=== PATIENT | female | born 1980 | race Caucasian/White ===

== ENCOUNTER 2018-12-22 05:30 | Day surgery (SDC) | payer BC ==
[2018-12-17 17:17] LABS: BASOPHILS % (AUTO) 0.4 % (0-1); EOSINOPHILS # (AUTO) 0.2 X10'3 (0-0.9); EOSINOPHILS % (AUTO) 1.5 % (0-6); LYMPHOCYTES # (AUTO) 2.9 X10'3 (1.1-4.8); LYMPHOCYTES % (AUTO) 26.5 % (21-51); MEAN CORPUSCULAR HEMOGLOBIN 28.3 PG (27.0-31.0); MEAN CORPUSCULAR HGB CONC 32.8 g/dL (33.0-36.5); MEAN CORPUSCULAR VOLUME 86.4 FL (78-98); MEAN PLATELET VOLUME 7.5 FL (7.4-10.4); MONOCYTES # (AUTO) 0.6 X10'3 (0-0.9); MONOCYTES % (AUTO) 5.1 % (2-12); NEUTROPHILS # (AUTO) 7.3 X10'3 (1.8-7.7); NEUTROPHILS % (AUTO) 66.5 % (42-75); PRE OP HEMATOCRIT 41.9 % (35.0-45.0); PRE OP HEMOGLOBIN 13.7 g/dL (12.0-16.0); PRE OP PLATELET COUNT 348 X10'3 (140-440); RED BLOOD COUNT 4.85 X10'6 (4.20-5.60)
[2018-12-17 17:25] LABS: ALBUMIN 3.7 G/DL (3.4-5.0); ALBUMIN/GLOBULIN RATIO 1.1 (1.1-1.5); ALKALINE PHOSPHATASE 88 IU/L (46-116); BLOOD UREA NITROGEN 16 MG/DL (7-18); BUN/CREATININE RATIO 19.5 (6.6-38.0); CALCIUM 8.9 MG/DL (8.5-10.1); CHLORIDE 106 MMOL/L (99-107); CREATININE 0.82 MG/DL (0.40-0.90); PRE OP ALT 22 U/L (30-65); PRE OP ANION GAP 8 (8-16); PRE OP AST 14 U/L (10-37); PRE OP BILIRUB, TOTAL 0.5 MG/DL (0.0-1.0); PRE OP GLUCOSE 120 MG/DL (70-104); PRE OP SODIUM 143 MMOL/L (135-145); TOTAL CARBON DIOXIDE 28.8 MMOL/L (24-32); eGFR 78 ML/MIN
[2018-12-17 17:33] LABS: PRE OP POTASSIUM 3.1 MMOL/L (3.4-5.1)
[2018-12-17 17:36] LABS: HCG SERUM QL NEGATIVE
[2018-12-22] VITALS (8 sets, daily range): BP systolic 105–119; BP diastolic 46–75
[~2018-12-22] VITALS: Ht 175.3 cm; Wt 104.6 kg
[~2018-12-22 05:30] MED LIST: NO HOME MEDS; cefazolin/dext.iso 2gm/100 ML IV ONE; famotidine 20mg tablet PO ONE; ringers solution, lacted 1,000 ML IV SCH
[2018-12-22] MEDS ORDERED: LIDOcaine 1% (10mg/ml) 2ml vial ONE (06:13)
[2018-12-22 06:40] LABS: ISTAT ANION GAP 12 (8-12); ISTAT BUN 13 mg/dL (6-19); ISTAT CL 105 mmol/L (99-107); ISTAT CREATININE 0.6 mg/dL (0.6-1.1); ISTAT GLUCOSE 87 mg/dL (70-104); ISTAT HGB 15.3 g/dl (12.0-16.0); ISTAT Hct 45 %PCV (35-48); ISTAT IONIZED CALCIUM 1.26 mmol/L (1.03-1.32); ISTAT K 4.2 mmol/L (3.5-5.1); ISTAT NA 141 mmol/L (135-145); ISTAT TOTAL CO2 24 mmol/L (24-32); ISTAT eGFR > 90 ML/MIN; POC BUN/CREATININE RATIO 21.7 (6.6-38.0)
[2018-12-22] MEDS ORDERED: LIDOcaine 1% 30ml preserv. free vial ONE (06:47)
[2018-12-22] MEDS ORDERED: BUPIVAcaine/PF 2.5 mg/ml (0.25%) 30ml vial ONE (06:47)
[2018-12-22] MEDS ORDERED: fentaNYL/PF 50MCG/1 ML 2ML syringe ONE (07:32)
[2018-12-22] MEDS ORDERED: MIDAZolam 5mg/5ml vial ONE (07:32)
[2018-12-22] MEDS ORDERED: ringers solution, lacted 1,000 ML IV SCH (07:52)
[2018-12-22] MEDS ORDERED: morphine 4 MG/ML inj SYRINge IV PRN ×2 (07:55)
[2018-12-22] MEDS ORDERED: meperidine/PF 25mg/ml syringe IV PRN ×3 (07:55)
[2018-12-22] MEDS ORDERED: ondansetron/PF 4mg/2ml inj IV PRN (07:55)
[2018-12-22] MEDS ORDERED: proCHLORperazine 10 MG/2 ml inj IV PRN (07:55)
--- NOTE | 2018-12-22 08:03 | NUR ---
Received from OR via [facility], accompanied by Anesthesiologist DR CARLTON and report given by Anesthesiologist. PT DROWSY, DENIES PAIN, MID BACK W/ISLAND AGATHAG COVERING INCISION W/STERI-STIPS CDI. Addendum: 12/22/18 at 0817 by Effie Shen RN Amended: Links added.
[2018-12-22] MEDS ORDERED: HYDROcodone/acetaminophen 5mg/325mg tablet PO ONE (08:25)
--- NOTE | 2018-12-22 09:03 | NUR ---
D/C INSTRUCTIONS GIVEN AND GONE OVER W/PT WHO VERBALIZES UNDERSTANDING, PT D/CD TO HOME VIA W/C TO PRIVATE VEHICLE W/O INCIDENT. Addendum: 12/22/18 at 0918 by Effie Shen RN Amended: Links added.
== END 2018-12-22 09:03 | disposition home or self-care (01) ==
LOC: PAS 05:30
PROVIDERS: ATTEND Surgery
DX: D17.1 Benign lipomatous neoplasm of skin and subcutaneous tissue of trunk (principal); F41.9 Anxiety disorder, unspecified; E66.9 Obesity, unspecified; Z68.33 Body mass index [BMI] 33.0-33.9, adult; Z98.890 Other specified postprocedural states; Z79.899 Other long term (current) drug therapy
CPT/HCPCS: 21932; 36415; 80047; 80053; 82948; 84703; 85025; J2001; J2250; J3010; J3490; A4215; A4615; A7000; J7120